=== PATIENT | female | born 1935 | race Caucasian/White ===

== ENCOUNTER → 2019-03-24 | Day surgery (SDC) | payer MEDICARE, BC ==
[~2019-03-24] MED LIST: ACETAMINOPHEN 325 MG TABLET PO PRN; ALBUTEROL SULFATE 2.5 MG/3 ML NEBU. NEB PRN; ASCO500C9 PO; ASPI81TA50 PO; ATROPINE 0.5 MG/5 ML DISP.SYRIN. IV PRN; BALANCED SALT IRRIG OPHTH SOLN 15 ML BOTTLE. IRR ONE; CALC-178 PO; CHONDROIT-SOD-HYALURONATE KIT. ONE; CHONDROIT-SOD-HYALURONATE KIT. OS ONE; DONE10TA7 PO; EPINEPHrine AMPULE 0.5 MG in BALANCED SALT IRRIG SOLN PLUS 500 ML IO ONE; ERYTHROMYCIN 0.5% OPHTH OINTMENT 1GM TUBE. OS ONE; HYALURONIDASE 75UNITS in LIDOCAINE 2% PF OPHTH 10 ML SYRINGE. OS ONE; IV RINGERS SOLUTION,LACTATED 1,000 ML IV SCH; LIDO/EPI IN BSS OPHTH 8 ML SYRINGE OS ONE; LIDO/EPI IN BSS OPHTH 8 ML SYRINGE OS PRN; MEMA10TA PO; MOXIFLOXACIN 0.5% OPHTH SOLUTION 3ML BOTTLE. OS SCH; NEPAFENAC 0.1% OPHTH SOLUTION 3ML BOTTLE. OS ONE; NON FORMULARY ITEM OS ONE; PHENOL ORAL SPRAY 177ML BOTTLE. MM PRN; POVIDONE-IODINE 5% OPHTH SOLUTION 30ML BOTTLE. ONE; POVIDONE-IODINE 5% OPHTH SOLUTION 30ML BOTTLE. OS ONE; PROPOFOL 20 ML IV ONE; TETRACAINE 0.5% OPHTH SOLUTION 4ML BOTTLE. OS ONE; TETRACAINE 0.5% OPHTH SOLUTION 4ML BOTTLE. OU ONE; diphenhydrAMINE 50 MG/ML VIAL IV PRN; prednisoLONE ACETATE 1% OPHTH SUSPENSION 5ML BOTTLE. ONE; prednisoLONE ACETATE 1% OPHTH SUSPENSION 5ML BOTTLE. OS ONE; prednisoLONE ACETATE 1% OPHTH SUSPENSION 5ML BOTTLE. OS SCH
[2019-03-24] MEDS: MOXIFLOXACIN 0.5% OPHTH SOLUTION 3ML BOTTLE. OS SCH ×3 (10:59→11:12)
[2019-03-24] MEDS: CATARACT OPHTH GEL 0.5 ML SYRINGE. OS PRN ×2 (11:12→11:19)
--- NOTE | 2019-03-24 11:21 | NUR ---
left eye block was done by the [employer]OL[employer] Florina Fuentes @ [id number]. Medication was administered by Florina Fuentes CRNA
--- NOTE | 2019-03-24 12:00 | PDOC4 ---
CATARACT Operative Report DATE DATE: 03/24/19 TIME: 11:56 Operation Performed OPERATIVE REPORT Name: Izabella Moya Operation Date: Preoperative Diagnosis: 1. Mature cataract, LEFTeye. 2. Inadequate pupillary dilation. Postoperative Diagnosis: 1. Mature cataract, LEFT:eye. 2. Inadequate pupillary dilation. Operation: 1. Phacoemulsification with posterior chamber intraocular lens implant. 2. Iris stretching via placement of Malyugan ring. 3. Vision Blue staining of capsule Surgeon: Cara Wooten D.O. Anesthesia: Local with monitored anesthesia care Description of Operation: Under cardiac monitoring and mild IV sedation, the patient received peribulbar anesthesia in the holding area. Pressure was applied to the eye with a [place] balloon for approximately 10 minutes. The patient was taken to the operating room and placed in a supine position and the periorbital region was prepped and draped in the usual sterile fashion. A lid speculum was placed between the eyelids. A side port incision was made and air was injected,followed by Vision Blue. After 30 seconds, the Vision blue was aspirated from the eye. A temporal clear corneal incision was made with a karlos tome. 1 cc of epi-Shugarcaine was injected into the anterior chamber. Viscoelastice was injected into the eye. Due to continued poor dilation not responsive to epi-Shugarcaine, a Malyugan ring was placed. A cystotome and capsule forceps were used to make a continuous tear capsulorhexus. Hydrodissection was performed with balanced salt solution. The phacoemulsification needle was placed into the eye and the cataract was removed. The remaining cortical material was removed with the irrigation and aspiration apparatus. The posterior capsule was noted to be clean and intact. Viscoelastic was injected into the eye inflating the capsular bag. A foldable intraocular lens was injected into the eye, unfolding as desired, and positioned in the capsular bag. The Malyugan ring was then removed from the eye. The viscoelastic was aspirated from the eye. The wound edges were hydrated with balanced salt solution. There were no wound leaks. Viscoelastic was injected over the side port and clear corneal incision s. One drop of Vigamox and one drop of prednisolone acetate were instilled into the eye. The lid speculum was removed and a pressure dressing with a Scales shield was placed over the eye. The patient was taken to the recovery room in good condition. DIONY WOOTEN DO Mar 24, 2019 12:00
[2019-03-24 12:15] VITALS: BP 142/76
== END | disposition home or self-care (01) ==
LOC: SURG 09:44
PROVIDERS: ATTEND Ophthalmology
DX: H25.12 Age-related nuclear cataract, left eye (principal); H21.562 Pupillary abnormality, left eye; G70.00 Myasthenia gravis without (acute) exacerbation; Z79.899 Other long term (current) drug therapy; Z98.890 Other specified postprocedural states; Z79.82 Long term (current) use of aspirin
CPT/HCPCS: 66982; C1780; J0171; J2704